=== PATIENT | male | born 1990 | race Caucasian/White ===

== ENCOUNTER 2018-09-29 20:39 | Emergency (ER) | payer MEDICAID ==
[~2018-09-29] VITALS: Ht 190.5 cm; Wt 74.9 kg
[2018-09-29 20:44] VITALS: Ht 190.5 cm; Wt 74.9 kg
[2018-09-29 23:17] VITALS: BP 141/79
== END 2018-09-29 23:17 | disposition home or self-care (01) ==
LOC: ED 20:39
DX: M25.512 Pain in left shoulder (principal); Z88.2 Allergy status to sulfonamides; V49.49XA Driver injured in collision with other motor vehicles in traffic accident, initial encounter; Y93.89 Activity, other specified; Y92.413 State road as the place of occurrence of the external cause; Y99.8 Other external cause status